=== PATIENT | male | born 1985 | race Native Hawaiian/Other Pacific Islander ===

== ENCOUNTER 2017-04-12 09:57 | Emergency (ER) | payer SELFPAY ==
--- NOTE | 2017-05-10 08:31 | UC ---
- Progress Note Progress Note: CLARIFICATION: PT SHOULD BE DISPO'ED A "LWBS". PT WITH A NAIL ALL THE WAY THROUGH HIS BOOT AND FOOT. NOT APPROPRIATE FOR URGENT CARE. I WENT OUT TO WAITING ROOM AND ADVISED PT THAT IT WOULD BE MORE APPROPRIATE TO BE SEEN IN THE ED. PT AMBULATED OUT WITH FRIENDS AND LEFT VIA PRIVATE CAR. - DUKE GONZALEZ MD
== END 2017-04-12 10:21 ==
LOC: UCEAST 09:57
DX: S91.339A Puncture wound without foreign body, unspecified foot, initial encounter (principal); W45.0XXA Nail entering through skin, initial encounter; Y93.9 Activity, unspecified; Y92.9 Unspecified place or not applicable; Z53.21 Procedure and treatment not carried out due to patient leaving prior to being seen by health care provider
CPT/HCPCS: 99203; G0463

== ENCOUNTER 2017-04-12 10:43 | Emergency (ER) | payer SELFPAY ==
[2017-04-12] MEDS ORDERED: Tetan/Diph/Pertus SYR(Tdap)* 0.5 ML SYR(BOOSTRIX) use SYR IM ONE (11:27)
[2017-04-12] MEDS ORDERED: oxyCODONE/Acetamin 5/325 MG* TAB PO ONE (11:50)
--- NOTE | 2017-04-12 12:41 | RAD ---
INDICATION: Nail extending through right foot. TECHNIQUE: 3 views of the right foot were obtained. FINDINGS: The patient was x-rayed with his sneaker on. There is a needle entering the dorsal aspect of the forefoot. In all of the images the nail projects over the third and fourth proximal phalanges. IMPRESSION: THERE IS A NAIL WHICH PROJECTS OVER THE FOREFOOT OVERLYING THE THIRD AND FOURTH PROXIMAL PHALANGES. IF CLINICALLY NEEDED CT IMAGING CAN BE HELPFUL IN DEFINING THE SPECIFIC LOCATION OF THE FOREIGN BODY.
[2017-04-12] MEDS ORDERED: fentaNYL* 50 MCG/ML 2 ML VIAL (100 MCG VIAL) IV SLOW PU ONE (13:16)
[2017-04-12] MEDS ORDERED: Midazolam* 1 MG/ML 10 ML VIAL (10 MG) IV ONE (13:23)
[2017-04-12] MEDS ORDERED: ceFAZolin 1 GM ADVAN(*) 1 GM in NS 0.9% 50 ML* 50 ML IVPB ONE (14:10)
--- NOTE | 2017-04-12 14:51 | RAD ---
Indication: Evaluate for foreign body. 3 views of the right foot demonstrates no evidence of radiopaque foreign body. No residual is noted. IMPRESSION: No radiopaque foreign body is identified.
[2017-04-12 17:06] VITALS: BP 112/64
--- NOTE | 2017-05-02 18:41 | ED ---
Blossom Jackson Thomas, scribed for Severo Perry MD on 04/12/17 at 1323 . Lower Extremity - HPI Summary HPI Summary: The patient is a 31 year old male presenting to the ED with a nail inserted into the top of his right foot from a nail gun. Nail has gone through patients boot into the top of his right foot. Patient states pain rated a 8/10 in severity and is worsened with movement. Patient denies any relevant medical history but does not have up to date Tetanus. - History of Current Complaint Chief Complaint: EDExtremityLower Stated Complaint: NAIL IN RT FOOT Time Seen by Provider: 04/12/17 11:24 Hx Obtained From: Patient Mechanism Of Injury: Penetrating Trauma Onset of Pain: Immediate Onset/Duration: Still Present Severity Initially: Severe Severity Currently: Severe Pain Intensity: 8 Pain Scale Used: 0-10 Numeric Timing: Constant Character Of Pain: Sharp Aggravating Factor(s): Movement Alleviating Factor(s): Nothing - Allergies/Home Medications Allergies/Adverse Reactions: Allergies Allergy/AdvReac Type Severity Reaction Status Date / Time No Known Allergies Allergy Verified 04/12/17 10:05 PMH/Surg Hx/FS Hx/Imm Hx Previously Healthy: Yes Sensory History: Denies: Hx Legally Blind EENT History: Denies: Hx Deafness Infectious Disease History: No Infectious Disease History: Denies: Traveled Outside the [place] in Last 30 Days - Family History Family History: Patient denies any relevant family history - Social History Occupation: Employed Full-time Alcohol Use: Occasionally Hx Substance Use: No Substance Use Type: Reports: None Hx Tobacco Use: Yes Smoking Status (MU): Light Every Day Tobacco Smoker Review of Systems Negative: Fever Musculoskeletal: Other - R foot pain All Other Systems Reviewed And Are Negative: Yes Physical Exam - Summary Physical Exam Summary: Appearance: Well-appearing, Well-nourished Skin: Warm, Dry, No rash, There is a minor laceration to head secondary to fall Eyes: Normal, PERRL, EOMI, sclera anicteric ENT: Large tongue Neck: Supple, nontender Respiratory: Clear to auscultation Cardiovascular: S1, S2, no murmur, no rub, no gallop Abdomen: Soft, nontender, no organomegaly Bowel sounds: Present Musculoskeletal: Normal, Strength/ROM Intact, no edema, pulses symmetrical Neurological: Normal, A&Ox3, cranial nerves II-XII WNL, follows commands, gait not tested, sensation intact to pin and light touch Psychiatric: affect normal, behavior appropriate, dressed appropriately, judgment intact Triage Information Reviewed: Yes Vital Signs On Initial Exam: Initial Vitals Temp Pulse Resp BP Pulse Ox 98.3 F 75 18 138/70 99 04/12/17 10:50 04/12/17 10:50 04/12/17 10:50 04/12/17 10:50 04/12/17 10:50 Vital Signs Reviewed: Yes Musculoskeletal: Positive: Pain @ - R foot - [place] Coma Scale Coma Scale Total: 15 Procedures - Procedure Summary Procedure Summary: PROCEDURE NOTE: Nail has been removed from patient's foot successfully. There is a puncture wound between the distal 3rd and 4th metatarsal. Will order follow up with antibiotics and X-Ray to confirm that none of the nail remains. Diagnostics - Vital Signs Vital Signs Temp Pulse Resp BP Pulse Ox 04/12/17 10:50 98.3 F 75 18 138/70 99 - Laboratory Lab Statement: Any lab studies that have been ordered have been reviewed, and results considered in the medical decision making process. - Radiology R Foot XR 14:11 Xray Interpretation: Positive (See Comments) - No radiopaque foreign body is identified. Dr. Perry has reviewed this body 1 of 1 Radiology Interpretation Completed By: Radiologist R Foot XR 11:26 Xray Interpretation: Positive (See Comments) - THERE IS A NAIL WHICH PROJECTS OVER THE FOREFOOT OVERLYING THE THIRD AND FOURTH PROXIMAL PHALANGES. IF CLINICALLY NEEDED CT IMAGING CAN BE HELPFUL IN DEFINING THE SPECIFIC LOCATION OF THE FOREIGN BODY. Dr. Perry has reviewed this report. Radiology Interpretation Completed By: Radiologist Lower Extremity Course/Dx - Course Assessment/Plan: The patient is a 31 year old male presenting to the ED with a nail inserted into the top of his right foot from a nail gun. Nail has gone through patients boot into the top of his right foot. Patient states pain rated a 8/10 in severity and is worsened with movement. Patient denies any relevant medical history but does not have up to date Tetanus. In the ED course the patient was given Cefzol, Fentanyl, Versed, Percocet, and Tetanus/ Diptheria/Pertussis. Foot X-Ray obtained at 11:26 shows THERE IS A NAIL WHICH PROJECTS OVER THE FOREFOOT OVERLYING THE THIRD AND FOURTH PROXIMAL PHALANGES. IF CLINICALLY NEEDED CT IMAGING CAN BE HELPFUL IN DEFINING THE SPECIFIC LOCATION OF THE FOREIGN BODY. I spoke with Dr. Sweeney, anesthesiology, who is unwilling to do a nerve block. I also spoke at 12:[address] Singh, orthopedics, who says that I should proceed alone. I removed the nail from the patients foot. There is a puncture wound between the distal 3rd and 4th metatarsal. I will order follow up antibiotics and X-Ray to conform that none of the nail remains. Foot X-Ray obtained at 14:11 shows no radiopaque foreign body is identified. - Diagnoses Provider Diagnoses: Foreign body in right foot - Physician Notifications Discussed Care Of Patient With: Gianni Sweeney Time Discussed With Above Provider: 12:45 Instructed by Provider To: Other - I spoke with Dr. Sweeney, anesthesiology, who is unwilling to do a nerve block. I also spoke at 12:[address] Singh, orthopedics, who says that I should proceed alone. Discharge - Discharge Plan Condition: Good Disposition: HOME Prescriptions: Cephalexin CAP* [Keflex 500 CAP*] 500 mg PO TID 5 Days #15 cap Patient Education Materials: Soft Tissue Foreign Body (ED) Print Language: INDIAN Forms: *Work Release Referrals: No Primary Care Phys,NOPCP [Primary Care Provider] - Additional Instructions: encuentra un medico para reevaluacion in josé miguel semana The documentation as recorded by the Blossom dickey Thomas accurately reflects the service I personally performed and the decisions made by me, Severo Perry MD.
== END 2017-04-12 18:20 | disposition home or self-care (01) ==
LOC: ED 10:43 → MERGE 10:43 → ED 18:22
DX: S91.341A Puncture wound with foreign body, right foot, initial encounter (principal); W45.0XXA Nail entering through skin, initial encounter; Y92.9 Unspecified place or not applicable; Z72.0 Tobacco use
CPT/HCPCS: 90471; 90715; 96360; 96374; 96375; 99285; A9270-GY; J0690; J2250; J3010